=== PATIENT | female | born 1980 | race African-American/Black ===

== ENCOUNTER 2017-02-18 18:54 | Emergency (ER) | payer OTHER ==
[~2017-02-18] VITALS: Ht 160 cm; Wt 83.7 kg
[~2017-02-18 18:54] MED LIST: LORTAB 5-325 M1 EACH PO; MOTRIN600 MG PO; NAPROSYN500 MG PO; PEN-VEE K,VEET500 MG PO; SEROQUEL100 MG PO; TRAMADOL HCL50 MG PO; ULTRAM50 MG PO
[2017-02-18] MEDS ORDERED: PEN-VEE K,VEET500 MG PO (20:18)
[2017-02-18] MEDS ORDERED: ULTRAM50 MG PO (20:18)
[2017-02-18] MEDS ORDERED: MOTRIN800 MG PO (20:18)
[2017-02-18 21:01] VITALS: BP 145/88
== END 2017-02-18 21:09 | disposition home or self-care (01) ==
LOC: RME 18:54 → EME 18:54 → RME 21:09
DX: K02.9 Dental caries, unspecified (principal)
CPT/HCPCS: 99281; 99283